=== PATIENT | male | born 1950 | race African-American/Black ===

== ENCOUNTER 2017-12-05 15:07 | Inpatient (IN) | payer OTHER ==
[2017-12-05 17:11] VITALS: BMI 25.7
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
[2017-12-05] MEDS ORDERED: IBUPROFEN 400 MG TABLET (FP) PO PRN (21:48)
[2017-12-05] MEDS ORDERED: ACETAMINOPHEN 325 MG TABLET (FP) PO PRN (21:48)
[2017-12-05] MEDS ORDERED: guaiFENesin/D-METHORPHAN HB 10 ML UNIT-DOSE CUPS PO PRN (21:48)
[2017-12-05] MEDS ORDERED: NICOTINE POLACRILEX 2 MG GUM BC PRN (21:48)
[2017-12-05] MEDS ORDERED: MAGNESIUM HYDROX 2400MG/30ML ORAL SUSPENSION 30 ML CUP PO PRN (21:48)
[2017-12-05] MEDS ORDERED: MENTHOL/PHENOL 1 EACH UD MM PRN (21:48)
[2017-12-05] MEDS ORDERED: chlordiazePOXIDE HCL 25 MG CAPSULE PO PRN (21:48)
[2017-12-05] MEDS ORDERED: P-EPHED 60MG/TRIPROLIDI 2.5MG TABLET PO PRN (21:48)
[2017-12-05] MEDS ORDERED: MAGNESIUM CITRATE 300 ML BOTTLE PO PRN (21:48)
[2017-12-05] MEDS ORDERED: hydrOXYzine PAMOATE 50 MG CAPSULE (FP) PO PRN (21:48)
[2017-12-05] MEDS ORDERED: LOPERAMIDE HCL 2 MG CAPSULE PO PRN (21:48)
[2017-12-05] MEDS ORDERED: MAG HYDROX/AL HYDROX/SIMETH 30 ML UNIT-DOSE CUP PO PRN (21:48)
[2017-12-05] MEDS ORDERED: PATIENT'S OWN MEDICATION (NON-FORMULARY) (Simvastatin [Simvastatin] 40 MG) PO SCH (22:00)
[2017-12-05] MEDS: ATORVASTATIN CA 20 MG TABLET (FP) PO SCH (22:31)
[2017-12-05] MEDS: THIAMINE HCL 100 MG TABLET (FP) PO SCH (22:31)
[2017-12-05] MEDS: chlordiazePOXIDE HCL 25 MG CAPSULE PO SCH (22:31)
[2017-12-06 00:33] LABS: URINE APPEARANCE CLEAR; URINE BILIRUBIN NEGATIVE (NEGATIVE); URINE BLOOD NEGATIVE (NEGATIVE); URINE COLOR YELLOW; URINE GLUCOSE (UA) NEGATIVE (NEGATIVE); URINE KETONE NEGATIVE (NEGATIVE); URINE LEUK ESTERASE NEGATIVE (NEGATIVE); URINE NITRITE NEGATIVE (NEGATIVE); URINE PROTEIN NEGATIVE (NEGATIVE); URINE UROBILINOGEN NEGATIVE mg/dL (0.2-1.0)
[2017-12-06] MEDS: chlordiazePOXIDE HCL 25 MG CAPSULE PO SCH ×4 (06:22→22:41)
[2017-12-06] MEDS ORDERED: FERROUS SULFATE 45 MG PO SCH (10:00)
[2017-12-06 10:15] LABS: CHLORIDE 108 mmol/L (98-107); HEMATOCRIT 31.3 % (35.4-49); HEMOGLOBIN 10.1 GM/dL (11.7-16.9); MCH 24.8 pg (25.7-33.7); MCHC 32.1 g/dl (32.0-35.9); MEAN CELL VOLUME 77.1 fl (80-96); MEAN PLT VOLUME 8.4 fl (7.5-11.1); PLATELET COUNT 242 K/MM3 (134-434); POTASSIUM 3.7 mmol/L (3.5-5.1); RBC 4.07 M/mm3 (4.00-5.60); SODIUM 142 mmol/L (136-145); WHITE BLOOD COUNT 4.1 K/mm3 (4.0-10.0)
[2017-12-06 10:26] LABS: ALK PHOS 78 U/L (45-117); ANION GAP 5 (8-16); BILIRUBIN,TOTAL 0.5 mg/dL (0.2-1.0); BLOOD UREA NITROGEN 20 mg/dL (7-18); CALCIUM 7.8 mg/dL (8.5-10.1); CO2 29 mmol/L (21-32); CREATININE 0.8 mg/dL (0.7-1.3); GLUCOSE,RANDOM 143 mg/dL (74-106); SGOT/AST 36 U/L (15-37); SGPT/ALT 37 U/L (12-78); TOT PROT 6.2 g/dl (6.4-8.2)
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
[2017-12-06] MEDS: HYDROCHLOROTHIAZIDE 25 MG TABLET (FP) PO SCH (10:38)
[2017-12-06] MEDS: PRENATAL VITAMINS W/ FOLIC ACID TABLET (FP) PO SCH (10:38)
[2017-12-06] MEDS: ASPIRIN COATED 81 MG TABLET.EC PO SCH (10:38)
[2017-12-06] MEDS ORDERED: ZOLPIDEM TARTRATE 5 MG TABLET PO PRN (11:25)
--- NOTE | 2017-12-06 14:27 | PN ---
[facility] CIWA - CIWA Score Nausea/Vomitin-Mild Nausea/No Vomiting Muscle Tremors: 4-Moderate,w/Arms Extend Anxiety: 4-Mod. Anxious/Guarded Agitation: 4-Moderately Restless Paroxysmal Sweats: 1-Minimal Palms Moist Orientation: 0-Oriented Tacttile Disturbances: 0-None Auditory Disturbances: 0-None Visual Disturbances: 0-None Headache: 0-None Present CIWA-Ar Total Score: 14 BHS Progress Note (SOAP) Subjective: sweat tremor irritable anxiety restlessness sleeplessness gi upset Objective: 12/06/17 14:26 Vital Signs Temperature 97.7 F 12/06/17 11:13 Pulse Rate 66 12/06/17 11:13 Respiratory Rate 18 12/06/17 11:13 Blood Pressure 123/75 12/06/17 11:13 O2 Sat by Pulse Oximetry (%) Laboratory Last Values WBC 4.1 K/mm3 (4.0-10.0) 12/06/17 07:20 RBC 4.07 M/mm3 (4.00-5.60) 12/06/17 07:20 Hgb 10.1 GM/dL (11.7-16.9) L 12/06/17 07:20 Hct 31.3 % (35.4-49) L 12/06/17 07:20 MCV 77.1 fl (80-96) L 12/06/17 07:20 MCH 24.8 pg (25.7-33.7) L 12/06/17 07:20 MCHC 32.1 g/dl (32.0-35.9) 12/06/17 07:20 RDW 15.0 % (11.9-15.9) 12/06/17 07:20 Plt Count 242 K/MM3 (134-434) 12/06/17 07:20 MPV 8.4 fl (7.5-11.1) 12/06/17 07:20 Sodium 142 mmol/L (136-145) 12/06/17 07:20 Potassium 3.7 mmol/L (3.5-5.1) 12/06/17 07:20 Chloride 108 mmol/L (98-107) H 12/06/17 07:20 Carbon Dioxide 29 mmol/L (21-32) 12/06/17 07:20 Anion Gap 5 (8-16) L 12/06/17 07:20 BUN 20 mg/dL (7-18) H 12/06/17 07:20 Creatinine 0.8 mg/dL (0.7-1.3) 12/06/17 07:20 Creat Clearance w eGFR > 60 (>60) 12/06/17 07:20 Random Glucose 143 mg/dL (74-106) H 12/06/17 07:20 Calcium 7.8 mg/dL (8.5-10.1) L 12/06/17 07:20 Total Bilirubin 0.5 mg/dL (0.2-1.0) 12/06/17 07:20 AST 36 U/L (15-37) 12/06/17 07:20 ALT 37 U/L (12-78) 12/06/17 07:20 Alkaline Phosphatase 78 U/L (45-117) 12/06/17 07:20 Total Protein 6.2 g/dl (6.4-8.2) L 12/06/17 07:20 Albumin 3.0 g/dl (3.4-5.0) L 12/06/17 07:20 Urine Color Yellow 12/06/17 00:01 Urine Appearance Clear 12/06/17 00:01 Urine pH 5.0 (5.0-8.0) 12/06/17 00:01 Ur Specific [place] 1.019 (1.001-1.035) 12/06/17 00:01 Urine Protein Negative (NEGATIVE) 12/06/17 00:01 Urine Glucose (UA) Negative (NEGATIVE) 12/06/17 00:01 Urine Ketones Negative (NEGATIVE) 12/06/17 00:01 Urine Blood Negative (NEGATIVE) 12/06/17 00:01 Urine Nitrite Negative (NEGATIVE) 12/06/17 00:01 Urine Bilirubin Negative (NEGATIVE) 12/06/17 00:01 Urine Urobilinogen Negative mg/dL (0.2-1.0) 12/06/17 00:01 Ur Leukocyte Esterase Negative (NEGATIVE) 12/06/17 00:01 RPR Titer Nonreactive (NONREACTIVE) 12/06/17 07:20 lab noted Assessment: 12/06/17 14:27 withdrawal sx 12/06/17 14:27 Plan: continue detox
--- NOTE | 2017-12-06 20:35 | EKG ---
Test Reason : Blood Pressure : / mmHG Vent. Rate : 086 BPM Atrial Rate : 086 BPM P-R Int : 156 ms QRS Dur : 084 ms QT Int : 400 ms P-R-T Axes : 063 022 038 degrees QTc Int : 478 ms NORMAL SINUS RHYTHM NONSPECIFIC T WAVE ABNORMALITY PROLONGED QT ABNORMAL ECG NO PREVIOUS ECGS AVAILABLE Confirmed by JAMEL QUINTANA, RT ([id number] on 12/06/2017 8:35:14 PM Referred By: Confirmed By:TR MCCULLOUGH MD
[2017-12-06] MEDS: ATORVASTATIN CA 20 MG TABLET (FP) PO SCH (22:41)
[2017-12-06] MEDS: THIAMINE HCL 100 MG TABLET (FP) PO SCH (22:41)
[2017-12-07] MEDS: chlordiazePOXIDE HCL 25 MG CAPSULE PO SCH ×3 (06:05→18:13)
[2017-12-07] MEDS: ASPIRIN COATED 81 MG TABLET.EC PO SCH (10:25)
[2017-12-07] MEDS: HYDROCHLOROTHIAZIDE 25 MG TABLET (FP) PO SCH (10:26)
[2017-12-07] MEDS: PRENATAL VITAMINS W/ FOLIC ACID TABLET (FP) PO SCH (10:26)
--- NOTE | 2017-12-07 10:44 | PN ---
[facility] CIWA - CIWA Score Nausea/Vomitin-No Nausea/No Vomiting Muscle Tremors: 4-Moderate,w/Arms Extend Anxiety: 4-Mod. Anxious/Guarded Agitation: 3 Paroxysmal Sweats: 1-Minimal Palms Moist Orientation: 0-Oriented Tacttile Disturbances: 0-None Auditory Disturbances: 0-None Visual Disturbances: 0-None Headache: 0-None Present CIWA-Ar Total Score: 12 BHS Progress Note (SOAP) Subjective: sweat tremor irritable anxiety restlessness Objective: 12/07/17 10:45 Vital Signs Temperature 97.2 F L 12/07/17 10:38 Pulse Rate 8 L 12/07/17 10:38 Respiratory Rate 16 12/07/17 10:38 Blood Pressure 138/69 12/07/17 10:38 O2 Sat by Pulse Oximetry (%) Laboratory Last Values WBC 4.1 K/mm3 (4.0-10.0) 12/06/17 07:20 RBC 4.07 M/mm3 (4.00-5.60) 12/06/17 07:20 Hgb 10.1 GM/dL (11.7-16.9) L 12/06/17 07:20 Hct 31.3 % (35.4-49) L 12/06/17 07:20 MCV 77.1 fl (80-96) L 12/06/17 07:20 MCH 24.8 pg (25.7-33.7) L 12/06/17 07:20 MCHC 32.1 g/dl (32.0-35.9) 12/06/17 07:20 RDW 15.0 % (11.9-15.9) 12/06/17 07:20 Plt Count 242 K/MM3 (134-434) 12/06/17 07:20 MPV 8.4 fl (7.5-11.1) 12/06/17 07:20 Sodium 142 mmol/L (136-145) 12/06/17 07:20 Potassium 3.7 mmol/L (3.5-5.1) 12/06/17 07:20 Chloride 108 mmol/L (98-107) H 12/06/17 07:20 Carbon Dioxide 29 mmol/L (21-32) 12/06/17 07:20 Anion Gap 5 (8-16) L 12/06/17 07:20 BUN 20 mg/dL (7-18) H 12/06/17 07:20 Creatinine 0.8 mg/dL (0.7-1.3) 12/06/17 07:20 Creat Clearance w eGFR > 60 (>60) 12/06/17 07:20 Random Glucose 143 mg/dL (74-106) H 12/06/17 07:20 Calcium 7.8 mg/dL (8.5-10.1) L 12/06/17 07:20 Total Bilirubin 0.5 mg/dL (0.2-1.0) 12/06/17 07:20 AST 36 U/L (15-37) 12/06/17 07:20 ALT 37 U/L (12-78) 12/06/17 07:20 Alkaline Phosphatase 78 U/L (45-117) 12/06/17 07:20 Total Protein 6.2 g/dl (6.4-8.2) L 12/06/17 07:20 Albumin 3.0 g/dl (3.4-5.0) L 12/06/17 07:20 Urine Color Yellow 12/06/17 00:01 Urine Appearance Clear 12/06/17 00:01 Urine pH 5.0 (5.0-8.0) 12/06/17 00:01 Ur Specific [place] 1.019 (1.001-1.035) 12/06/17 00:01 Urine Protein Negative (NEGATIVE) 12/06/17 00:01 Urine Glucose (UA) Negative (NEGATIVE) 12/06/17 00:01 Urine Ketones Negative (NEGATIVE) 12/06/17 00:01 Urine Blood Negative (NEGATIVE) 12/06/17 00:01 Urine Nitrite Negative (NEGATIVE) 12/06/17 00:01 Urine Bilirubin Negative (NEGATIVE) 12/06/17 00:01 Urine Urobilinogen Negative mg/dL (0.2-1.0) 12/06/17 00:01 Ur Leukocyte Esterase Negative (NEGATIVE) 12/06/17 00:01 RPR Titer Nonreactive (NONREACTIVE) 12/06/17 07:20 lab noted Assessment: 12/07/17 10:45 withdrawal sx Plan: continue detox
[2017-12-07] MEDS: chlordiazePOXIDE 5 MG CAPSULE PO SCH (22:45)
[2017-12-07] MEDS: THIAMINE HCL 100 MG TABLET (FP) PO SCH (22:46)
[2017-12-07] MEDS: ATORVASTATIN CA 20 MG TABLET (FP) PO SCH (22:47)
[2017-12-08] MEDS: chlordiazePOXIDE 5 MG CAPSULE PO SCH ×3 (05:50→17:36)
[2017-12-08] MEDS: ASPIRIN COATED 81 MG TABLET.EC PO SCH (10:49)
[2017-12-08] MEDS: HYDROCHLOROTHIAZIDE 25 MG TABLET (FP) PO SCH (10:49)
[2017-12-08] MEDS: PRENATAL VITAMINS W/ FOLIC ACID TABLET (FP) PO SCH (10:49)
--- NOTE | 2017-12-08 10:53 | PN ---
BHS Progress Note (SOAP) Subjective: feeling better tolerates food and fluid well alert oriented x 3 no tremor less sweat Objective: 12/08/17 10:52 Vital Signs Temperature 97.2 F L 12/08/17 10:08 Pulse Rate 75 12/08/17 10:08 Respiratory Rate 18 12/08/17 10:08 Blood Pressure 142/74 12/08/17 10:08 O2 Sat by Pulse Oximetry (%) Laboratory Last Values WBC 4.1 K/mm3 (4.0-10.0) 12/06/17 07:20 RBC 4.07 M/mm3 (4.00-5.60) 12/06/17 07:20 Hgb 10.1 GM/dL (11.7-16.9) L 12/06/17 07:20 Hct 31.3 % (35.4-49) L 12/06/17 07:20 MCV 77.1 fl (80-96) L 12/06/17 07:20 MCH 24.8 pg (25.7-33.7) L 12/06/17 07:20 MCHC 32.1 g/dl (32.0-35.9) 12/06/17 07:20 RDW 15.0 % (11.9-15.9) 12/06/17 07:20 Plt Count 242 K/MM3 (134-434) 12/06/17 07:20 MPV 8.4 fl (7.5-11.1) 12/06/17 07:20 Sodium 142 mmol/L (136-145) 12/06/17 07:20 Potassium 3.7 mmol/L (3.5-5.1) 12/06/17 07:20 Chloride 108 mmol/L (98-107) H 12/06/17 07:20 Carbon Dioxide 29 mmol/L (21-32) 12/06/17 07:20 Anion Gap 5 (8-16) L 12/06/17 07:20 BUN 20 mg/dL (7-18) H 12/06/17 07:20 Creatinine 0.8 mg/dL (0.7-1.3) 12/06/17 07:20 Creat Clearance w eGFR > 60 (>60) 12/06/17 07:20 Random Glucose 143 mg/dL (74-106) H 12/06/17 07:20 Calcium 7.8 mg/dL (8.5-10.1) L 12/06/17 07:20 Total Bilirubin 0.5 mg/dL (0.2-1.0) 12/06/17 07:20 AST 36 U/L (15-37) 12/06/17 07:20 ALT 37 U/L (12-78) 12/06/17 07:20 Alkaline Phosphatase 78 U/L (45-117) 12/06/17 07:20 Total Protein 6.2 g/dl (6.4-8.2) L 12/06/17 07:20 Albumin 3.0 g/dl (3.4-5.0) L 12/06/17 07:20 Urine Color Yellow 12/06/17 00:01 Urine Appearance Clear 12/06/17 00:01 Urine pH 5.0 (5.0-8.0) 12/06/17 00:01 Ur Specific [place] 1.019 (1.001-1.035) 12/06/17 00:01 Urine Protein Negative (NEGATIVE) 12/06/17 00:01 Urine Glucose (UA) Negative (NEGATIVE) 12/06/17 00:01 Urine Ketones Negative (NEGATIVE) 12/06/17 00:01 Urine Blood Negative (NEGATIVE) 12/06/17 00:01 Urine Nitrite Negative (NEGATIVE) 12/06/17 00:01 Urine Bilirubin Negative (NEGATIVE) 12/06/17 00:01 Urine Urobilinogen Negative mg/dL (0.2-1.0) 12/06/17 00:01 Ur Leukocyte Esterase Negative (NEGATIVE) 12/06/17 00:01 RPR Titer Nonreactive (NONREACTIVE) 12/06/17 07:20 lab noted Assessment: 12/08/17 10:53 mild withdrawal sx Plan: medically supervised detox
[2017-12-08] MEDS: THIAMINE HCL 100 MG TABLET (FP) PO SCH (22:32)
[2017-12-08] MEDS: chlordiazePOXIDE HCL 10 MG CAPSULE PO SCH (22:32)
[2017-12-08] MEDS: ATORVASTATIN CA 20 MG TABLET (FP) PO SCH (22:33)
[2017-12-08 22:40] VITALS: TEMP 97.7
[2017-12-09] MEDS: chlordiazePOXIDE HCL 10 MG CAPSULE PO SCH (05:41)
--- NOTE | 2017-12-09 08:41 | PN ---
BHS Progress Note (SOAP) Subjective: denies pain steady gait tolerates food and fluid well Objective: 12/09/17 08:36 Vital Signs Temperature 97.7 F 12/09/17 06:22 Pulse Rate 63 12/09/17 06:22 Respiratory Rate 19 12/09/17 06:22 Blood Pressure 133/61 12/09/17 06:22 O2 Sat by Pulse Oximetry (%) Laboratory Last Values WBC 4.1 K/mm3 (4.0-10.0) 12/06/17 07:20 RBC 4.07 M/mm3 (4.00-5.60) 12/06/17 07:20 Hgb 10.1 GM/dL (11.7-16.9) L 12/06/17 07:20 Hct 31.3 % (35.4-49) L 12/06/17 07:20 MCV 77.1 fl (80-96) L 12/06/17 07:20 MCH 24.8 pg (25.7-33.7) L 12/06/17 07:20 MCHC 32.1 g/dl (32.0-35.9) 12/06/17 07:20 RDW 15.0 % (11.9-15.9) 12/06/17 07:20 Plt Count 242 K/MM3 (134-434) 12/06/17 07:20 MPV 8.4 fl (7.5-11.1) 12/06/17 07:20 Sodium 142 mmol/L (136-145) 12/06/17 07:20 Potassium 3.7 mmol/L (3.5-5.1) 12/06/17 07:20 Chloride 108 mmol/L (98-107) H 12/06/17 07:20 Carbon Dioxide 29 mmol/L (21-32) 12/06/17 07:20 Anion Gap 5 (8-16) L 12/06/17 07:20 BUN 20 mg/dL (7-18) H 12/06/17 07:20 Creatinine 0.8 mg/dL (0.7-1.3) 12/06/17 07:20 Creat Clearance w eGFR > 60 (>60) 12/06/17 07:20 Random Glucose 143 mg/dL (74-106) H 12/06/17 07:20 Calcium 7.8 mg/dL (8.5-10.1) L 12/06/17 07:20 Total Bilirubin 0.5 mg/dL (0.2-1.0) 12/06/17 07:20 AST 36 U/L (15-37) 12/06/17 07:20 ALT 37 U/L (12-78) 12/06/17 07:20 Alkaline Phosphatase 78 U/L (45-117) 12/06/17 07:20 Total Protein 6.2 g/dl (6.4-8.2) L 12/06/17 07:20 Albumin 3.0 g/dl (3.4-5.0) L 12/06/17 07:20 Urine Color Yellow 12/06/17 00:01 Urine Appearance Clear 12/06/17 00:01 Urine pH 5.0 (5.0-8.0) 12/06/17 00:01 Ur Specific [place] 1.019 (1.001-1.035) 12/06/17 00:01 Urine Protein Negative (NEGATIVE) 12/06/17 00:01 Urine Glucose (UA) Negative (NEGATIVE) 12/06/17 00:01 Urine Ketones Negative (NEGATIVE) 12/06/17 00:01 Urine Blood Negative (NEGATIVE) 12/06/17 00:01 Urine Nitrite Negative (NEGATIVE) 12/06/17 00:01 Urine Bilirubin Negative (NEGATIVE) 12/06/17 00:01 Urine Urobilinogen Negative mg/dL (0.2-1.0) 12/06/17 00:01 Ur Leukocyte Esterase Negative (NEGATIVE) 12/06/17 00:01 RPR Titer Nonreactive (NONREACTIVE) 12/06/17 07:20 lab noted Assessment: 12/09/17 08:37 cardiac S1S2 lung clear bilaterally abdomen non tenderness Plan: discharged to dow out patient
--- NOTE | 2017-12-09 08:44 | DS ---
[facility] Detox Discharge Summary Admission Date: 12/05/17 Discharge Date: 12/09/17 - History Present History: Alcohol Dependence - Physical Exam Results Vital Signs: Vital Signs Temperature 97.7 F 12/09/17 06:22 Pulse Rate 63 12/09/17 06:22 Respiratory Rate 18 12/09/17 06:30 Blood Pressure 133/61 12/09/17 06:22 O2 Sat by Pulse Oximetry (%) Pertinent Admission Physical Exam Findings: withdrawal sx Vital Signs Temperature 97.7 F 12/09/17 06:22 Pulse Rate 63 12/09/17 06:22 Respiratory Rate 18 12/09/17 06:30 Blood Pressure 133/61 12/09/17 06:22 O2 Sat by Pulse Oximetry (%) Laboratory Last Values WBC 4.1 K/mm3 (4.0-10.0) 12/06/17 07:20 RBC 4.07 M/mm3 (4.00-5.60) 12/06/17 07:20 Hgb 10.1 GM/dL (11.7-16.9) L 12/06/17 07:20 Hct 31.3 % (35.4-49) L 12/06/17 07:20 MCV 77.1 fl (80-96) L 12/06/17 07:20 MCH 24.8 pg (25.7-33.7) L 12/06/17 07:20 MCHC 32.1 g/dl (32.0-35.9) 12/06/17 07:20 RDW 15.0 % (11.9-15.9) 12/06/17 07:20 Plt Count 242 K/MM3 (134-434) 12/06/17 07:20 MPV 8.4 fl (7.5-11.1) 12/06/17 07:20 Sodium 142 mmol/L (136-145) 12/06/17 07:20 Potassium 3.7 mmol/L (3.5-5.1) 12/06/17 07:20 Chloride 108 mmol/L (98-107) H 12/06/17 07:20 Carbon Dioxide 29 mmol/L (21-32) 12/06/17 07:20 Anion Gap 5 (8-16) L 12/06/17 07:20 BUN 20 mg/dL (7-18) H 12/06/17 07:20 Creatinine 0.8 mg/dL (0.7-1.3) 12/06/17 07:20 Creat Clearance w eGFR > 60 (>60) 12/06/17 07:20 Random Glucose 143 mg/dL (74-106) H 12/06/17 07:20 Calcium 7.8 mg/dL (8.5-10.1) L 12/06/17 07:20 Total Bilirubin 0.5 mg/dL (0.2-1.0) 12/06/17 07:20 AST 36 U/L (15-37) 12/06/17 07:20 ALT 37 U/L (12-78) 12/06/17 07:20 Alkaline Phosphatase 78 U/L (45-117) 12/06/17 07:20 Total Protein 6.2 g/dl (6.4-8.2) L 12/06/17 07:20 Albumin 3.0 g/dl (3.4-5.0) L 12/06/17 07:20 Urine Color Yellow 12/06/17 00:01 Urine Appearance Clear 12/06/17 00:01 Urine pH 5.0 (5.0-8.0) 12/06/17 00:01 Ur Specific [place] 1.019 (1.001-1.035) 12/06/17 00:01 Urine Protein Negative (NEGATIVE) 12/06/17 00:01 Urine Glucose (UA) Negative (NEGATIVE) 12/06/17 00:01 Urine Ketones Negative (NEGATIVE) 12/06/17 00:01 Urine Blood Negative (NEGATIVE) 12/06/17 00:01 Urine Nitrite Negative (NEGATIVE) 12/06/17 00:01 Urine Bilirubin Negative (NEGATIVE) 12/06/17 00:01 Urine Urobilinogen Negative mg/dL (0.2-1.0) 12/06/17 00:01 Ur Leukocyte Esterase Negative (NEGATIVE) 12/06/17 00:01 RPR Titer Nonreactive (NONREACTIVE) 12/06/17 07:20 lab noted - Treatment Hospital Course: Detox Protocol Followed, Detoxed Safely, Responded well, Discharged Condition Good, Rehab Referral Accepted - Medication Discharge Medications: Ambulatory Orders Aspirin [Aspirin EC] 81 mg PO DAILY 12/05/17 Ferrous Sulfate [Iron] 45 mg PO DAILY 03/10/18 Hydrochlorothiazide 25 mg PO DAILY #30 tablet 12/09/17 Simvastatin 40 mg PO HS #30 tablet 12/09/17 - Diagnosis (1) Alcohol dependence with uncomplicated withdrawal Current Visit: Yes Status: Acute (2) HLD (hyperlipidemia) Current Visit: Yes Status: Chronic Qualifiers: Hyperlipidemia type: unspecified Qualified Code(s): E78.5 - Hyperlipidemia , unspecified (3) HTN (hypertension) Current Visit: Yes Status: Chronic Qualifiers: Hypertension type: essential hypertension Qualified Code(s): I10 - Essential (primary) hypertension (4) PPD positive Current Visit: Yes Status: Suspected - AMA Did Patient Leave Against Medical Advice: No
[2017-12-09] MEDS: HYDROCHLOROTHIAZIDE 25 MG TABLET (FP) PO SCH (09:47)
[2017-12-09] MEDS: ASPIRIN COATED 81 MG TABLET.EC PO SCH (09:47)
[2017-12-09] MEDS: PRENATAL VITAMINS W/ FOLIC ACID TABLET (FP) PO SCH (09:47)
[2017-12-09 10:46] VITALS: BP 135/74; PULSE 77
== END 2017-12-09 10:10 | disposition home or self-care (01) | DRG 897 ==
LOC: YASAS 15:07 → Y6N 19:14
PROVIDERS: ADMIT Internal Medicine; ATTEND Internal Medicine
PROC: HZ2ZZZZ Detoxification Services for Substance Abuse Treatment (ICD-10-PCS; principal; 2017-12-05)
DX: F10.230 Alcohol dependence with withdrawal, uncomplicated (principal); F10.282 Alcohol dependence with alcohol-induced sleep disorder; I10 Essential (primary) hypertension; E78.5 Hyperlipidemia, unspecified; R76.11 Nonspecific reaction to tuberculin skin test without active tuberculosis; D64.9 Anemia, unspecified; M13.88 Other specified arthritis, other site; R00.0 Tachycardia, unspecified; Z87.891 Personal history of nicotine dependence; Z91.81 History of falling
CPT/HCPCS: 36415; 71046-TC-FY; 80053; 81003; 85027; 86593; 93005; 93010